=== PATIENT | female | born 1950 | race Caucasian/White ===

== ENCOUNTER 2019-05-24 06:33 | Day surgery (SDC) | payer MEDICARE, MEDICAID ==
[~2019-05-24] VITALS: Ht 160 cm; Wt 49.6 kg
[~2019-05-24 06:33] MED LIST: ALB0.5UD IH; ALBU18HF2 INH; ALLO100T PO; ASPI81TA44 PO; ATOR40TA71 PO; BUDE10.22 INH; FURO-149 PO; MIDO5TAB4 PO; PANT-47 PO; PHO667C PO; SEVE800T8 PO; oxygen
[2019-05-24 07:15] VITALS: BP 130/64
[2019-05-24] MEDS ORDERED: normal saline 1000ml 1,000 ML IV PRN (07:15)
[2019-05-24 07:42] LABS: BASOPHILS # (AUTO) 0.1 X10'3 (0-0.2); BASOPHILS % (AUTO) 1.2 % (0-1); EOSINOPHILS # (AUTO) 0.2 X10'3 (0-0.9); EOSINOPHILS % (AUTO) 3.3 % (0-6); HEMATOCRIT 33.6 % (35.0-45.0); HEMOGLOBIN 11.1 g/dl (12.0-16.0); LYMPHOCYTES # (AUTO) 0.6 X10'3 (1.1-4.8); LYMPHOCYTES % (AUTO) 9.2 % (21-51); MEAN CORPUSCULAR HEMOGLOBIN 30.9 PG (27.0-31.0); MEAN CORPUSCULAR VOLUME 93.8 FL (78-98); MEAN PLATELET VOLUME 8.1 FL (7.4-10.4); MONOCYTES # (AUTO) 0.6 X10'3 (0-0.9); MONOCYTES % (AUTO) 8.9 % (2-12); NEUTROPHILS # (AUTO) 5.3 X10'3 (1.8-7.7); NEUTROPHILS % (AUTO) 77.4 % (42-75); PLATELET COUNT 306 X10'3 (140-440); RED BLOOD COUNT 3.58 X10'6 (4.20-5.60); WHITE BLOOD COUNT 6.8 X10'3 (4.5-11.0)
[2019-05-24] MEDS ORDERED: CINA30TA PO (07:46)
[2019-05-24] MEDS ORDERED: FOLI0.8T7 PO (07:46)
[2019-05-24 07:54] LABS: ANION GAP 7 (8-16); BLOOD UREA NITROGEN 33 MG/DL (7-18); BUN/CREATININE RATIO 6.3 (6.6-38.0); CHLORIDE 100 MMOL/L (99-107); CREATININE 5.21 MG/DL (0.40-0.90); GLUCOSE 97 MG/DL (70-104); POTASSIUM 4.3 MMOL/L (3.5-5.1); SODIUM 140 MMOL/L (135-145); TOTAL CARBON DIOXIDE 33.5 MMOL/L (24-32); eGFR 8 ML/MIN
[2019-05-24] MEDS ORDERED: heparin 1,000 UNITS/NS 500ml 500 ML ONE (08:44)
[2019-05-24] MEDS ORDERED: LIDOcaine 1%/PF 5ML 10 MG/ML VIAL ONE ×2 (08:44→09:50)
[2019-05-24] MEDS ORDERED: fentaNYL/PF 50MCG/1 ML 2ML syringe ONE (08:44)
[2019-05-24] MEDS ORDERED: midazolam 2 mg/2 ml injection ONE (08:44)
[2019-05-24] MEDS ORDERED: iohexol 300mg/ml 100ml inj. ONE (08:45)
[2019-05-24] MEDS ORDERED: heparin 1,000unit/ml 10ml vial 10 ML ONE (09:36)
[2019-05-24 10:15] VITALS: BP 154/87
[2019-05-24 10:30] VITALS: BP 175/100
[2019-05-24 10:45] VITALS: BP 164/102
[2019-05-24 11:00] VITALS: BP 133/70
[2019-05-24 11:15] VITALS: BP 130/68
== END 2019-05-24 11:29 | disposition home or self-care (01) ==
LOC: SSTAY O 06:33
PROVIDERS: ATTEND Radiology Vascular & Interventional Radiology
DX: T82.868A Thrombosis due to vascular prosthetic devices, implants and grafts, initial encounter (principal); Z79.01 Long term (current) use of anticoagulants; Y83.2 Surgical operation with anastomosis, bypass or graft as the cause of abnormal reaction of the patient, or of later complication, without mention of misadventure at the time of the procedure; Y92.89 Other specified places as the place of occurrence of the external cause
CPT/HCPCS: 36415; 36558; 76937; 77001; 80048; 85025; 85610; C1750; C1769; C1894; J1644; J2250; J3010; Q9967; A9270